=== PATIENT | male | born 1985 | race Caucasian/White ===

== ENCOUNTER 2018-10-09 13:57 | Emergency (ER) | payer BC, OTHER ==
[2018-10-09] MEDS ORDERED: Ibuprofen 200 MG TAB ONE (14:38)
--- NOTE | 2018-10-09 14:52 | RAD ---
TWO VIEWS CHEST: DATE: 10/09/2018. PROVIDED CLINICAL HISTORY: Cough. FINDINGS: Comparison 08/25/2016. Cardiac and mediastinal silhouette is within normal limits. There is patchy ai rspace disease suspected in the right mid lung zone. Lungs appear otherwise clear. No pleural fluid or pneumothorax apparent. IMPRESSION: Patchy right mid lung zone airspace disease. Correlate with concerns for pneumonia. POS: [facility]
== END 2018-10-09 15:54 | disposition home or self-care (01) ==
LOC: ERS 13:57
DX: J18.9 Pneumonia, unspecified organism (principal)
CPT/HCPCS: 71046; 87804; 94640; J7620

== ENCOUNTER 2018-12-05 22:32 | Emergency (ER) | payer BC ==
[2018-12-05 23:48] LABS: Hemoglobin 16.3 g/dL (14.0-18.0); Mean Corpuscular HGB CONC 34.3 g/dL (32.0-36.0); Mean Corpuscular Hemoglobin 30.8 pg (27.0-31.0); Mean Corpuscular Volume 89.9 fL (78.0-98.0); Mean Platelet Volume 6.7 fL (7.4-10.4); Platelet Count 199 thou/uL (130-400); RBC Distribution Width 13.1 % (11.5-14.5); Red Blood Cell (RBC) Count 5.28 mill/uL (4.70-6.10); White Blood Cell (WBC) Count 24.1 thou/uL (4.8-10.8)
[2018-12-05] MEDS ORDERED: Acetaminophen 500 MG TAB ONE (23:56)
[2018-12-05] MEDS ORDERED: Ondansetron PF 4 MG/2 ML Vial ONE (23:56)
[2018-12-06 00:07] LABS: ALT (SGPT) 21 U/L (8-55); AST (SGOT) 14 U/L (5-34); Albumin 4.3 g/dL (3.5-5.0); Alkaline Phosphatase 73 U/L (40-150); Anion Gap 16 mmol/L (10-20); BUN (Urea Nitrogen) 17 mg/dL (8.9-20.6); Calc. Creatinine Clearance 0 mL/min (70-130); Calcium 9.4 mg/dL (7.8-10.44); Carbon Dioxide 23 mmol/L (22-29); Chloride 101 mmol/L (98-107); Estimated GFR-MDRD 69; Globulin 3.5 g/dL (2.4-3.5); Glucose 105 mg/dL (70-105); Potassium 3.7 mmol/L (3.5-5.1); Protein, Total 7.8 g/dL (6.0-8.3); Sodium 136 mmol/L (136-145)
[2018-12-06 00:18] LABS: Band 13 % (5-11); Eosinophils 1 % (0-10); Lymphocytes 7 % (21-51); MDiff Complete? YES; Monocytes 4 % (0-10); Neutrophil 73 % (42-75); Platelet Morphology Comment Appears Adequate; Reactive Lymphocytes 2 % (0-10)
--- NOTE | 2018-12-06 07:38 | ULT ---
Final report by Dr. Rachel [facility] after-hours study ULTRASOUND ABDOMEN LIMITED: (RIGHT UPPER QUADRANT) DATE: 12/06/2018 HISTORY: Right upper quadrant abdominal pain, nausea, vomiting, and fever FINDINGS: Gallbladder:8 mm polyp. No mural thickening or pericholecystic edema. No gallstone identified. Common duct: 4 mm. Liver:Size and echogenicity within normal limits Pancreas:Nonspecific sonographic appearance Right kidney:No hydronephrosis. 2 cm irregularly-shaped hypoechoic lesion at upper pole, probably a c yst. Agree with preliminary report by [facility]. IMPRESSION: 1. No evidence of acute cholecystitis. 2. No biliary obstruction. 3. Probable gallbladder polyp. 4. Complex cystic lesion right kidney.
--- NOTE | 2018-12-06 08:21 | RAD ---
PORTABLE AP CHEST XRAY: DATE: 12/05/2018. HISTORY: Abdominal pain for 2-3 days. Shortness of breath. COMPARISON: 10/09/2018. FINDINGS: Cardiac silhouette and pulmonary vasculature are within normal limits. Reticulonodular densities in the right mid lung zone have improved. There are linear densities seen at the right lung base which may be related to linear atelectasis versus scarring. There is mild elevation of the right hemidiaph ragm. Lungs are otherwise clear. No other interval change. IMPRESSION: Elevation of right hemidiaphragm with probable mild linear atelectasis and/or scarring at the right l suleiman base. There is otherwise no acute cardiopulmonary process. POS: [facility]
--- NOTE | 2018-12-06 08:44 | CT ---
PRELIMINARY REPORT/[facility]/EMERGENCY AFTER HOURS PROCEDURE: EXAM: CT Abdomen and Pelvis With Contrast EXAM DATE/TIME: 12/06/2018 1:23 AM CLINICAL HISTORY: 33 years old, male; Signs and symptoms; Nausea and vomiting; Patient HX: 33 yo male presents with 2 d ay HX of nausea/vomiting/diarrhea. He states that his vomit is dark colored but not bright red. Denie s drinking alcohol. States that he is unable to tolerat po and has vomited after eating today several times. He also had a fever at home today as well. TECHNIQUE: Imaging protocol: Axial computed tomography images of the abdomen and pelvis with intravenous contras t. Coronal reformatted images were created and reviewed. COMPARISON: US Gallbladder RUQ 12/06/2018 12:33 AM FINDINGS: Lungs: Subsegmental atelectasis or scarring in the right lung base. Partially visualized 5 mm nodule left lung base. ABDOMEN: Liver: No mass. Gallbladder and bile ducts: Probable 5 mm polyp in the gallbladder, which is otherwise unremarkable. No ductal dilation. Pancreas: No mass or ductal dilation. Spleen: No mass. Adrenals: No mass. Kidneys and ureters: Bilateral renal cysts.No enhancing mass or hydronephrosis. Stomach and bowel: Sigmoid colon diverticulosis. No bowel obstruction. No acute inflammation. Appendix: Normal appendix. PELVIS: Bladder: Normal. Reproductive: Normal. ABDOMEN and PELVIS: Intraperitoneal space: No free air or free fluid. Bones/joints: No suspicious bone lesions. Soft tissues: No acute findings. Vasculature: No abdominal aortic aneurysm. Lymph nodes: No lymphadenopathy. IMPRESSION: No acute findings in the abdomen or pelvis. Thank you for allowing us to participate in the care of your patient. Dictated and Authenticated by: Nicole Sanchez MD 12/06/2018 1:38 AM Central Time ([place] & [place]) FINAL REPORT ABDOMEN AND PELVIC CT SCAN WITH IV CONTRAST: EMERGENT AFTER HOURS EXAM TIME: 1:25 a.m. DATE: 12/06/2018. Minimal right lower lung base subsegmental atelectasis. Partially visualized 0.5 cm nodule in the le ft lower lobe. Bilateral renal cysts with a tiny amount of calcification within the wall of the righ t renal cyst. No significant acute process. This report is in agreement with the preliminary report given [facility]. POS: [facility]
[2018-12-06] MEDS ORDERED: ISOVUE-370 76%-LOCM 1 ML ONE (10:53)
== END 2018-12-06 03:27 | disposition home or self-care (01) ==
LOC: ERS 22:32
DX: K52.9 Noninfective gastroenteritis and colitis, unspecified (principal)
CPT/HCPCS: 36415; 71045; 74177; 76705; 80053; 83690; 83735; 85025; 87040; 87804; 96361; 96374; J2405; Q9966